=== PATIENT | male | born 1960 | race Caucasian/White ===

== ENCOUNTER 2021-11-26 10:04 | Outpatient (CLI) | payer BC, SELFPAY ==
--- NOTE | 2021-11-26 11:00 | NEURO_ITS ---
IMPRESSION: Complaints of pain/numbness in left thumb. # Mild left Carpal Tunnel Syndrome. # Mild left ulnar neuropathy. # Normal EMG examination. # Clinical correlation recommended. Nerve Conduction Studies Anti Sensory Summary Table Stim Site NR Peak (ms) P-T Amp (?V) Site1 Site2 Delta-P (ms) Dist (cm) Yonis (m/s) Left Median Anti Sensory (2-3nd Digit) Wrist 4.2 29.9 Wrist 2-3nd Digit 4.2 14.0 33 Wrist 4.1 22.4 Wrist 2-3nd Digit 4.2 14.0 33 Left Radial Anti Sensory (Base 1st Digit) Wrist 2.3 44.7 Wrist Base 1st Digit 2.3 0.0 Left Ulnar Anti Sensory (5th Digit) Wrist 3.7 21.6 Wrist 5th Digit 3.7 14.0 38 Motor Summary Table Stim Site NR Onset (ms) O-P Amp (mV) Site1 Site2 Delta-0 (ms) Dist (cm) Yonis (m/s) Left Median Motor (Abd Poll Brev) Wrist 4.0 3.4 Elbow Wrist 3.7 22.0 59 Elbow 7.7 3.3 Left Ulnar Motor (Abd Dig Minimi) Wrist 3.0 5.0 A Elbow Wrist 5.4 28.5 53 A Elbow 8.4 4.6 B Elbow Wrist 3.7 21.5 58 B Elbow 6.7 4.7 F Wave Studies NR F-Lat (ms) L-R F-Lat (ms) Left Median (Mrkrs) (Abd Poll Brev) 29.69 Left Ulnar (Mrkrs) (Abd Dig Min) 29.67 EMG Side Muscle Nerve Root Ins Act Fibs Amp Dur Recrt Comment Left 1stDorInt Ulnar C8-T1 Nml Nml Nml Nml Nml Left Ext Indicis Radial (Post Int) C7-8 Nml Nml Nml Nml Nml Left Ext Digitorum Radial (Post Int) C7-8 Nml Nml Nml Nml Nml Left BrachioRad Radial C5-6 Nml Nml Nml Nml Nml Left PronatorTeres Median C6-7 Nml Nml Nml Nml Nml Left Abd Poll Brev Median C8-T1 Nml Nml Nml Nml Nml MTDD
== END 2021-11-26 10:05 | disposition home or self-care (01) ==
PROVIDERS: PCP Internal Medicine; Visit Provider Orthopaedic Surgery
DX: G56.02 Carpal tunnel syndrome, left upper limb (principal); G56.22 Lesion of ulnar nerve, left upper limb
CPT/HCPCS: 95886; 95909

== ENCOUNTER 2024-08-29 14:45 | Emergency (ER) | payer BC, SELFPAY ==
--- NOTE | ~2024-08-29 | XR_ITS ---
EXAMINATION: XR wrist RT min 3V DATE: 08/29/2024 15:03 INDICATION: Radial right wrist pain post fall from ladder TECHNIQUE: Posteroanterior, ulnar deviation, oblique, and lateral views of the right wrist were obtai abby. COMPARISON: none FINDINGS: Bone alignment is normal. No fracture. 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 Mild osteoarthritis the first metacarpophalangeal joint. Soft tissues are unremarkable. IMPRESSION: 1. 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 No acute osseous abnormality . Reviewed, dictated and finalized at location B. IMPRESSION: 1. 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 No acu te osseous abnormality.
--- NOTE | 2024-08-29 14:47 | ED.UPPEXIN ---
HPI - Extremity Injury (Upper) General Chief Complaint: Extremity Injury, Upper Stated Complaint: Right Wrist Pain Time Seen by Provider: 08/29/24 14:47 Source: patient Mode of arrival: ambulatory Limitations: no limitations History of Present Illness HPI narrative: Adan is a 63-year-old male patient presenting to the clinic today with complaints of right wrist pain that occurred today. He reports he was helping taking some siding off of his parent's house and he was approximately 5 ft up a ladder when it slipped out from underneath him and he landed on his right hip and right wrist. States that he is not concerned about his hip pain as he thinks it is just bruised but is coming in to have his right wrist evaluated. He denies any his head or any loss of consciousness. He does not take any blood thinners. Has pain and swelling to the right dorsal radial wrist with pain radiating down into his forearm. Rates pain currently an 6/10. Has not taken anything for pain nor ice to the area Related Data Home Medications ?Medication ?Instructions ?Recorded ?Confirmed ?Last Taken ?Type atorvastatin 20 mg tablet 20 mg PO QPM 02/21/19 03/01/19 02/26/19 History ferrous sulfate 325 mg (65 mg 325 mg PO DAILY 02/21/19 03/01/19 02/26/19 History iron) tablet (iron) multivitamin 1 tablet PO DAILY 02/21/19 03/01/19 02/26/19 History omega 7-kja-kqm-fish oil 1,000 mg 2 cap PO DAILY 02/21/19 03/01/19 02/26/19 History (120 mg-180 mg) capsule (Fish Oil) Allergies Allergy/AdvReac Type Severity Reaction Status Date / Time Penicillins Allergy Unknown UNKNOWN Verified 08/29/24 15:10 REACTION Review of Systems Review of Systems: Pertinent positives per HPI. Patient denies any fever, chills, rash, headache, visual changes, dizziness, cough, runny nose, sore throat, shortness of breath, chest pain, palpitations, nausea, vomiting, diarrhea, constipation, abdominal pain, or any urinary issues. [facility] Past Medical History Medical History ADD (attention deficit disorder) Hyperlipidemia Comments At the time of my signature, I reviewed and agree with the nursing past medical, surgical, social, and family history. There is no relevant family history pertinent to the patient complaint. Exam Narrative: General: Well-developed, well nourished, in no apparent distress Head: Normocephalic, atraumatic. Cardio: Regular rate and rhythm, s1 and s2 normal, no murmur appreciated. Resp: Clear to auscultation bilaterally, no rhonchi, rales, wheezing or rubs. Musculoskeletal: No deformity, mild swelling noted over the dorsal radial wrist, tender to palpation over the right dorsal radial wrist, pain with flexion and extension of the wrist as well as ulnar and radial deviation, pain radiates into the forearm, range of motion limited due to pain, muscle strength strong and equal, peripheral pulse strong, no edema, no cyanosis, normal gait and station Course Course Emergency Course: Portions of this record may have been created with voice recognition software. Level of Care: Express Care Visit Vital Signs Vital signs: Vital Signs Temperature 37.1 C 08/29/24 14:53 Pulse Rate 71 08/29/24 14:53 Respiratory Rate 20 08/29/24 14:53 Blood Pressure 121/76 08/29/24 14:53 Pulse Oximetry 93 08/29/24 14:53 Oxygen Delivery Room Air 08/29/24 14:53 Temperature 37.1 C 08/29/24 14:53 Pulse Rate 71 08/29/24 14:53 Respiratory Rate 20 08/29/24 14:53 Blood Pressure 121/76 08/29/24 14:53 Pulse Oximetry 93 08/29/24 14:53 Oxygen Delivery Room Air 08/29/24 14:53 Vital signs reviewed MDM - Extremity Injury (Upper) MDM Narrative Medical decision making narrative: At the time of visit patient is resting comfortably on the exam table. Patient appears to be nontoxic. Diagnostics: X-ray of the right wrist was performed was negative for any sign of fracture or malalignment. Plan: I suspect patient has a right wrist sprain. [place]aco wrap, ice pack, and arm sling was given to the patient. Supportive measures were discussed with the patient and they voiced understanding discharge instructions and agrees to treatment plan. Return precautions reviewed Differential Diagnosis Differential diagnosis: Likely sprain and strain of wrist, fracture of wrist and other (Wrist contusion, soft tissue injury) Discharge Plan Discharge Clinical Impression: Right wrist sprain Qualifiers: Encounter type: initial encounter Wrist sprain location: radiocarpal joint Qualified Code(s): S63.521A - Sprain of radiocarpal joint of right wrist, initial encounter Patient Disposition: Home Condition: Stable Instructions: Antibiotic Form, Wrist Sprain (ED) Additional Instructions: X-rays negative for any sign of fracture or malalignment of the right wrist. Rest, ice, elevate, and wear guanaco wrap as directed May wear arm sling as discussed Tylenol/motrin for pain as discussed. Follow up with your PCP if symptoms persist more than 1 week. Patient Language: French Prescriptions: No Action atorvastatin 20 mg tablet 20 mg PO QPM multivitamin Tablet 1 tablet PO DAILY ferrous sulfate [iron] 325 mg (65 mg iron) Tablet 325 mg PO DAILY omega 8-zcs-teg-fish oil [Fish Oil] 1,000 mg (120 mg-180 mg) Capsule 2 cap PO DAILY Follow-up/Referrals: Luis,Rudy Juarez MD [Primary Care Provider] - Time of Disposition: 15:27 Quality NIHSS Nursing Documentation ED NIHSS nursing documentation: reviewed/agree
[2024-08-29 14:53] VITALS: BP 121/76; PULSE 71; RESP 20; TEMP 37.1; O2SAT 93
== END 2024-08-29 15:30 | disposition home or self-care (01) ==
PROVIDERS: Emergency Provider Nurse Practitioner Family; PCP Internal Medicine
DX: S63.501A Unspecified sprain of right wrist, initial encounter (principal); W11.XXXA Fall on and from ladder, initial encounter; E78.5 Hyperlipidemia, unspecified
CPT/HCPCS: 73110; 99213; A4565; G0463